=== PATIENT | female | born 1940 | race Hispanic/Latino ===

== ENCOUNTER 2017-03-05 22:42 | Observation (INO) | payer MEDICARE ==
--- NOTE | 2017-03-05 23:05 | ED PDOC ---
Arrival/HPI - General Time Seen by Provider: 03/05/17 22:56 Historian: Patient - History of Present Illness Narrative History of Present Illness (Text): 03/05/17 23:05 Margarette Sosa is a 77 year old female, whose past medical history includes atrial fibrillation on Eliquis, who presents to the Emergency department accompanied by complaining of fever, confusion, and generalized weakness. states patient is currently being evaluated by her urologist for possible infection and had been experiencing dysuria with hematuria for the past few days. notes today patient began experiencing fever with chills , and developed generalized weakness tonight. states patient was having difficulty ambulating to the bathroom tonight secondary to weakness. also notes patient has been disoriented and confused. Patient in ER is confused and oriented to person only. Limited HPI and ROS due to patient's confusion. PMD: Dr. Edmonds Time/Duration: Other (tonight) Symptom Onset: Gradual Symptom Course: Unchanged Activities at Onset: Rest, Light Context: Home Past Medical History - Provider Review Nursing Documentation Reviewed: Yes - Cardiac Hx Pacemaker: No - Neurological Hx Paralysis: No - Hematological/Oncological Hx Blood Transfusions: No Hx Blood Transfusion Reaction: No - Musculoskeletal/Rheumatological Hx Musculoskeletal Disorders: No - Psychiatric Hx Substance Use: No - Anesthesia Hx Anesthesia Reactions: No Hx Malignant Hyperthermia: No Family/Social History - Physician Review Nursing Documentation Reviewed: Yes Family/Social History: Unknown Family HX Hx Alcohol Use: No Hx Substance Use: No Allergies/Home Meds Allergies/Adverse Reactions: Allergies No Known Allergies Allergy (Verified 03/05/17 23:05) Home Medications: Home Meds Medication Instructions Recorded Confirmed Alprazolam [Xanax] 0.25 mg PO BID 05/27/12 03/06/17 Alprazolam [Xanax] 0.25 mg PO BID 03/06/17 03/06/17 Apixaban [Eliquis] 5 mg PO BID 03/06/17 03/06/17 Cholecalciferol [Vitamin D] 0 iu PO QWK 03/06/17 03/06/17 Diltiazem HCl [Diltiazem ER] 180 mg PO DAILY 03/06/17 03/06/17 Mirtazapine [Remeron] 10 mg [facility] 03/06/17 03/06/17 Pantoprazole [Protonix] 40 mg PO DAILY 03/06/17 03/06/17 Simvastatin [Zocor] 1 tab PO 2XW 03/06/17 03/06/17 Review of Systems - Review of Systems Systems not reviewed;Unavailable: Altered Mental Status (Confused) Constitutional: Fevers, Other (+chills, +generalized weakness) Respiratory: absent: SOB, Cough Cardiovascular: absent: Chest Pain Gastrointestinal: absent: Abdominal Pain, Diarrhea, Nausea, Vomiting Genitourinary Female: Dysuria, Hematuria. absent: Urine Output Changes Musculoskeletal: absent: Back Pain Neurological: Other (+confusion). absent: Headache, Dizziness Physical Exam Vital Signs Reviewed: Yes Vital Signs Temp Pulse Resp BP Pulse Ox 03/06/17 02:50 100 H 18 111/64 93 L 03/06/17 01:18 98.3 F 108 H 20 103/66 91 L 03/05/17 23:05 100.1 F H 95 H 17 175/94 H 91 L 03/05/17 23:03 100.1 F H 95 H 17 175/94 H 91 L Temperature: Febrile Blood Pressure: Hypertensive Pulse: Regular Respiratory Rate: Normal Appearance: Positive for: Well-Appearing, Non-Toxic, Comfortable Pain Distress: None Mental Status: Positive for: Confused, other (Oriented to person only ) - Systems Exam Head: Present: Atraumatic, Normocephalic Pupils: Present: PERRL Extroacular Muscles: Present: EOMI Conjunctiva: Present: Normal Mouth: Present: Moist Mucous Membranes Neck: Present: Normal Range of Motion Respiratory/Chest: Present: Clear to Auscultation, Good Air Exchange. No: Respiratory Distress, Accessory Muscle Use Cardiovascular: Present: Regular Rate and Rhythm, Normal S1, S2. No: Murmurs Abdomen: Present: Normal Bowel Sounds. No: Tenderness, Distention, Peritoneal Signs Back: Present: Normal Inspection Upper Extremity: Present: Normal Inspection. No: Cyanosis, Edema Lower Extremity: Present: Normal Inspection. No: Edema Neurological: Present: GCS=15 Skin: Present: Warm, Dry, Normal Color. No: Rashes Psychiatric: Present: Alert, Other (Confused). No: Oriented x 3 (Oriented to person only) Medical Decision Making ED Course and Treatment: 03/05/17 23:05 Impression: 77 year old female brought in for fever, chills, confusion, generalized weakness today, dysuria and hematuria past few days. Differential Diagnosis included but are not limited to: AMS vs. UTI Plan: -- EKG -- Chest X-ray -- Labs, VBG, blood cultures -- Urinalysis, urine cultures -- IV fluids -- Reassess and disposition Progress Notes: Reviewed EKG, a fib at [address] RBBB. Non-specific ST/T wave changes. 03/06/17 01:08 Reviewed radiology, Chest X-ray shows no acute processes. CT Head shows: Brain: There is prominence of sulci, gyri and ventricles. There is no midline shift. There are no intraaxial or extra axial mass lesions or areas of hemorrhage. There is small age- indeterminate lacunar infarcts in the basal ganglia Parker-white differentiation is maintained. Ventricles: See above Bony structures: Cranial vault is intact. Soft tissues: unremarkable Sinuses: There is no acute sinusitis. Ears and mastoids: Middle ears and mastoids unremarkable. Orbits: Orbital contents are unremarkable. IMPRESSION: Age-indeterminate basal ganglia lacunar infarcts; no bleed 03/06/17 02:44 Case discussed with ELIZABETH Gutiérrez, covering for Dr. Edmonds. Pt will be admitted to [facility] for AMS, UTI, and SIRS under Dr. Edmonds's service. Requests Dr. Salazar and Dr. Dc on consult. - Lab Interpretations Lab Results: 03/05/17 22:45 03/05/17 22:45 Lab Results 03/06/17 01:25: Urine Color Yellow, Urine Appearance Sl cloudy, Urine pH 6.0, Ur Specific [place] 1.020, Urine Protein 100 H, Urine Glucose (UA) Negative, Urine Ketones Negative, Urine Blood Large H, Urine Nitrate Negative, Urine Bilirubin Negative, Urine Urobilinogen 0.2, Ur Leukocyte Esterase Moderate H, Urine RBC 5 - 10, Urine WBC 20 - 25, Ur Epithelial Cells 0 - 2, Urine Bacteria Mod 03/05/17 23:20: pO2 136 H, VBG pH 7.47 H, VBG pCO2 31.0 L, VBG HCO3 22.6, VBG Total CO2 23.6, VBG O2 Sat (Calc) 99.6 H, VBG Base Excess -0.2 L, VBG Potassium 3.7, Glucose 156 H, Lactate 1.0, FiO2 21.0, Sodium 130.0 L, Chloride 97.0 L, Venous Blood Potassium 3.7 03/05/17 22:45: Sodium 130 L, Potassium 3.6, Chloride 97, Carbon Dioxide 21, Anion Gap 16, BUN 28 H, Creatinine 2.0 H, Est GFR ( Amer) 29, Est GFR ( Non-Af Amer) 24, Random Glucose 147 H, Calcium 8.4, Phosphorus 2.1 L, Magnesium 1.5 L, Total Bilirubin 2.0 H, AST 26, ALT 24, Alkaline Phosphatase 77, Total Protein 6.7, Albumin 3.6, Globulin 3.1, Albumin/Globulin Ratio 1.2 03/05/17 22:45: PT 16.1 H, INR 1.49 H, APTT 42.5 H 03/05/17 22:45: WBC 9.7, RBC 3.93, Hgb 11.9 L, Hct 34.4 L, MCV 87.5, MCH 30.3, MCHC 34.6, RDW 14.1, Plt Count 134, MPV 10.5, Gran % 86.7 H, Lymph % (Auto) 5.1 L, [place] % (Auto) 8.1 H, Eos % (Auto) 0.0 L, Baso % (Auto) 0.1, Gran # 8.41 H, Lymph # 0.5 L, [place] # 0.8 H, Eos # 0.0, Baso # 0.01 I have reviewed the lab results: Yes - RAD Interpretation Radiology Orders: 03/05/17 23:08 CHEST PORTABLE [RAD] Stat 03/05/17 23:50 HEAD W/O CONTRAST [CT] Stat Battery Tester: ED Physician, Radiologist - EKG Interpretation Interpreted by ED Physician: Yes Type: 12 lead EKG - Medication Orders Current Medication Orders: Sodium Chloride (Sodium Chloride 0.9%) 1,000 mls @ 100 mls/hr IV .Q10H [facility] Last Admin: 03/06/17 00:58 Dose: 100 mls/hr Discontinued Medications Sodium Chloride (Sodium Chloride 0.9%) 1,000 mls @ 999 mls/hr IV .Q1H1M STA Stop: 03/06/17 02:18 Last Admin: 03/06/17 02:00 Dose: 999 mls/hr Ceftriaxone Sodium (Rocephin 1 Gram Ivpb) 1 gm in 100 mls @ 200 mls/hr IV ONCE STA PRN Reason: Protocol Stop: 03/06/17 01:55 Last Admin: 03/06/17 02:32 Dose: 200 mls/hr - Scribe Statement The provider has reviewed the documentation as recorded by the Jada Gottlieb Provider Scribe Attestation: All medical record entries made by the Scribe were at my direction and personally dictated by me. I have reviewed the chart and agree that the record accurately reflects my personal performance of the history, physical exam, medical decision making, and the department course for this patient. I have also personally directed, reviewed, and agree with the discharge instructions and disposition. Disposition/Present on Arrival - Present on Arrival Any Indicators Present on Arrival: No History of DVT/PE: No History of Uncontrolled Diabetes: No Urinary Catheter: No History of Decub. Ulcer: No History Surgical Site Infection Following: None - Disposition Have Diagnosis and Disposition been Completed?: Yes Diagnosis: Altered mental status, Urinary tract infection, SIRS (systemic inflammatory response syndrome) Disposition: HOSPITALIZED Disposition Time: 02:43 Patient Plan: Admission Patient Problems: Current Active Problems Problem Status Onset Altered mental status Acute SIRS (systemic inflammatory response syndrome) Acute Urinary tract infection Acute Condition: STABLE
[2017-03-05 23:57] LABS: VENOUS BLOOD GAS BASE EXCESS -0.2 mmol/L (0.0-2.0); VENOUS BLOOD PH 7.47 (7.32-7.43)
[2017-03-05 23:59] LABS: BASO # 0.01 K/mm3 (0.0-2.0); BASO % 0.1 % (0.0-3.0); GRAN # 8.41 (1.4-6.5); GRAN % 86.7 % (50.0-68.0); HEMATOCRIT 34.4 % (36.0-48.0); LYMPH # 0.5 (1.2-3.4); LYMPH % 5.1 % (22.0-35.0); MEAN CELL VOLUME 87.5 fl (80.0-105.0); MEAN CORPUSCULAR HEMOGLOBIN 30.3 pg (25.0-35.0); MEAN CORPUSCULAR HGB CONC 34.6 g/dl (31.0-37.0); MEAN PLATELET VOLUME 10.5 fl (7.0-11.0); MONO # 0.8 (0.1-0.6); MONO % 8.1 % (1.0-6.0); RED CELL DISTRIBUTION WIDTH 14.1 % (11.5-14.5); WHITE BLOOD COUNT 9.7 10^3/ul (4.5-11.0)
[2017-03-06 00:07] LABS: ALB/GLOB RATIO 1.2 (1.1-1.8); CALCIUM 8.4 mg/dL (8.4-10.5); INR 1.49 (0.93-1.08); MAGNESIUM 1.5 mg/dL (1.7-2.2); PARTIAL THROMBOPLASTIN TIME 42.5 Seconds (23.7-30.8); PHOSPHOROUS 2.1 mg/dL (2.5-4.5); POTASSIUM 3.6 mmol/L (3.6-5.0); TOTAL PROTEIN 6.7 g/dL (5.8-8.3)
--- NOTE | 2017-03-06 00:43 | CT ---
EXAM: CT Head Without Intravenous Contrast EXAM DATE/TIME: 03/05/2017 11:50 PM CLINICAL HISTORY: 77 years old, female; Signs and symptoms; Altered mental status/memory loss; Additional info: AMS TECHNIQUE: Axial computed tomography images of the head/brain without intravenous contrast. All CT scans at this facility use one or more dose reduction techniques, viz.: automated exposure control; ma/kV adjustment per patient size (including targeted exams where dose is matched to indication; i.e. head); or iterative reconstruction technique. COMPARISON: There are no prior studies for comparison. FINDINGS: Brain: There is prominence of sulci, gyri and ventricles. There is no midline shift. There are no intra-axial or extra axial mass lesions or areas of hemorrhage. There is small age-indeterminate lacunar infarcts in the basal ganglia Parker-white differentiation is maintained. Ventricles: See above Bony structures: Cranial vault is intact. Soft tissues: unremarkable Sinuses: There is no acute sinusitis. Ears and mastoids: Middle ears and mastoids unremarkable. Orbits: Orbital contents are unremarkable. IMPRESSION: Age-indeterminate basal ganglia lacunar infarcts; no bleed
[2017-03-06] MEDS: Sodium Chloride 0.9% 1,000 ML IV SCH ×4 (00:58→22:02)
[2017-03-06] MEDS ORDERED: Sodium Chloride 0.9% 1,000 ML IV STA (01:18)
[2017-03-06] MEDS ORDERED: cefTRIAXone 1 gm 1 GM/100 ML BAG IV STA (01:26)
[2017-03-06 02:12] LABS: URINE BILIRUBIN NEGATIVE (NEGATIVE); URINE BLOOD LARGE (NEGATIVE); URINE GLUCOSE (UA) NEGATIVE (NEGATIVE); URINE KETONE NEGATIVE (NEGATIVE); URINE LEUKOCYTE ESTERASE MODERATE Leu/uL (NEGATIVE); URINE PROTEIN 100 mg/dL (<30 mg/dL); URINE UROBILINOGEN 0.2 E.U./dL (<1 E.U./dL)
[2017-03-06 02:23] LABS: URINE APPEARANCE SL CLOUDY (CLEAR); URINE COLOR YELLOW (YELLOW)
[2017-03-06 02:36] LABS: URINE EPITHELIAL CELLS 0 - 2 /hpf (0-5)
[2017-03-06 02:37] LABS: URINE BACTERIA MOD (NEG); URINE WBC 20 - 25 /hpf (0-6)
[2017-03-06 05:26] VITALS: BMI 30.2
--- NOTE | 2017-03-06 07:37 | RAD ---
HISTORY: Sepsis Patient COMPARISON: No prior. FINDINGS: LUNGS: No active pulmonary disease. PLEURA: No significant pleural effusion identified, no pneumothorax apparent. CARDIOVASCULAR: Normal. OSSEOUS STRUCTURES: No significant abnormalities. VISUALIZED UPPER ABDOMEN: Normal. OTHER FINDINGS: None. IMPRESSION: No active disease.
[2017-03-06] MEDS: cefTRIAXone 1 gm 1 GM/100 ML BAG IVPB SCH (10:08)
--- NOTE | 2017-03-06 13:16 | CP.PCM.CON ---
<Donal Rosa - Last Filed: 03/06/17 13:08> History of Present Illness - History of Present Illness History of Present Illness: Consult Note for Dr. Dc Reason for Consult: AMS 77 y/o F with PMH of a-fib on eliquis presents to the ED for generalized weakness and confusion. Patient was initially brought in by for worsening confusion over the last several days. Much of information provided in history from prior medical notes due to patients confused state. Patient was being evaluated by Urology for hematuria and dysuria. The patient began having fever and chills, along with developing generalized weakness. Pt also began having difficulty walking due to weakness. Patient was not at baseline upon admission according to . Review of systems not readily obtained due to patients confused state. When asked questions about past medical history, patient denied everything. She stated she did not have any prior medical issues , but did say she took medicine that she did not know the name of. Review of Systems - Review of Systems Systems not reviewed;Unavailable: Altered Mental Status Past Patient History - Past Social History Smoking Status: Former Smoker - CARDIAC Hx Cardiac Disorders: Yes Hx Cardia Arrhythmia: Yes Hx Pacemaker: No - PULMONARY Hx Respiratory Disorders: No Hx Bronchitis: Yes Hx Pneumonia: Yes - NEUROLOGICAL Hx Neurological Disorder: No - HEENT Hx HEENT Problems: Yes Hx Cataracts: Yes - RENAL Hx Chronic Kidney Disease: No - ENDOCRINE/METABOLIC Hx Endocrine Disorders: No - HEMATOLOGICAL/ONCOLOGICAL Hx Blood Disorders: No - INTEGUMENTARY Hx Dermatological Problems: No - MUSCULOSKELETAL/RHEUMATOLOGICAL Hx Musculoskeletal Disorders: No Hx Falls: No - GASTROINTESTINAL Hx Gastrointestinal Disorders: Yes Hx Diverticulitis: Yes Hx Gastroesophageal Reflux: Yes Other/Comment: colon polyps - GENITOURINARY/GYNECOLOGICAL Hx Genitourinary Disorders: No Other/Comment: Bladder infection - PSYCHIATRIC Hx Psychophysiologic Disorder: Yes Hx Anxiety: Yes Hx Depression: Yes - SURGICAL HISTORY Hx Surgeries: Yes (egd/colonoscopy;cervical polyps;T&A) Other/Comment: stapling of hemmorhoids, denied cervical polyps, colon polyps, denied T&A - ANESTHESIA Hx Anesthesia Reactions: No Hx Malignant Hyperthermia: No Meds Allergies/Adverse Reactions: Allergies Allergy/AdvReac Type Severity Reaction Status Date / Time No Known Allergies Allergy Verified 03/06/17 05:04 - Medications Medications: Current Medications Sodium Chloride (Sodium Chloride 0.9%) 1,000 mls @ 100 mls/hr IV .Q10H [facility] Last Admin: 03/06/17 10:09 Dose: 100 mls/hr Ceftriaxone Sodium (Rocephin 1 Gram Ivpb) 1 gm in 100 mls @ 100 mls/hr IVPB DAILY [facility] PRN Reason: Protocol Last Admin: 03/06/17 10:08 Dose: 100 mls/hr Physical Exam - Constitutional Appears: Non-toxic, No Acute Distress - Head Exam Head Exam: ATRAUMATIC, NORMAL INSPECTION, NORMOCEPHALIC - Eye Exam Eye Exam: EOMI - ENT Exam ENT Exam: Mucous Membranes Moist - Respiratory Exam Respiratory Exam: Clear to Auscultation Bilateral, NORMAL BREATHING PATTERN. absent: Rales, Rhonchi, Wheezes - Cardiovascular Exam Cardiovascular Exam: RRR, +S1, +S2 - GI/Abdominal Exam GI & Abdominal Exam: Normal Bowel Sounds, Soft. absent: Tenderness - Extremities Exam Extremities exam: Positive for: normal inspection. Negative for: calf tenderness, pedal edema - Neurological Exam Neurological exam: Alert, CN II-XII Intact, Oriented x3 Additional comments: No motor or sensory deficits. Patient is oriented x3, but becomes confused easily and must be redirected Speech is tangential No pronator drift - Psychiatric Exam Psychiatric exam: Normal Affect, Normal Mood - Skin Skin Exam: Intact, Normal Color, Warm Results - Vital Signs Recent Vital Signs: Last Vital Signs Temp 98.4 F 03/06/17 08:16 Pulse 108 H 03/06/17 08:16 Resp 22 03/06/17 08:16 BP 110/59 L 03/06/17 08:16 Pulse Ox 98 03/06/17 08:16 - Labs Result Diagrams: 03/05/17 22:45 03/05/17 22:45 Assessment & Plan - Assessment and Plan (Free Text) Plan: 77 y/o F with PMH of A-fib presents with AMS secondary to UTI and dehydration causing metabolic derangements. Patient has had decreased oral intake and appears dehydrated on exam and in lab findings. Head CT showed age indeterminate lacunar infarcts. Pt does have Brain MRI ordered at this time to evaluate for possible emboli from a-fib, although patient is on Eliquis. Pt is neurologically stable at this time. Plan: Brain MRI Increase oral hydration Continue antibiotics for UTI Physical Therapy Moe, PGY-2 <Ney Dc - Last Filed: 03/06/17 14:09> Meds - Medications Medications: Current Medications Sodium Chloride (Sodium Chloride 0.9%) 1,000 mls @ 100 mls/hr IV .Q10H [facility] Last Admin: 03/06/17 10:09 Dose: 100 mls/hr Ceftriaxone Sodium (Rocephin 1 Gram Ivpb) 1 gm in 100 mls @ 100 mls/hr IVPB DAILY [facility] PRN Reason: Protocol Last Admin: 03/06/17 10:08 Dose: 100 mls/hr Results - Vital Signs Recent Vital Signs: Last Vital Signs Temp 98.4 F 03/06/17 08:16 Pulse 108 H 03/06/17 08:16 Resp 22 03/06/17 08:16 BP 110/59 L 03/06/17 08:16 Pulse Ox 98 03/06/17 08:16 - Labs Result Diagrams: 03/05/17 22:45 03/05/17 22:45 Attending/Attestation - Attestation I have personally seen and examined this patient.: Yes I have fully participated in the care of the patient.: Yes I have reviewed all pertinent clinical information: Yes
[2017-03-06 16:24] VITALS: RESP 20
--- NOTE | 2017-03-06 17:27 | MRI ---
PROCEDURE: MRI BRAIN WITHOUT CONTRAST HISTORY: confusion COMPARISON: None. TECHNIQUE: Multiplanar, multisequence MR images of the brain were obtained without intravenous contrast enhancement. FINDINGS: HEMORRHAGE: None DWI: No evidence of an acute or early subacute infarction. BRAIN PARENCHYMA: No mass effect or edema. No atrophy or chronic microvascular ischemic changes. VENTRICLES: Unremarkable. No hydrocephalus. CRANIUM: Unremarkable. ORBITS: Grossly unremarkable. PARANASAL SINUSES/MASTOIDS: Clear VASCULAR SYSTEM: Skull base flow voids intact. OTHER FINDINGS: None. IMPRESSION: Unremarkable non contrast enhanced MRI of the brain.
--- NOTE | 2017-03-06 17:52 | US ---
PROCEDURE: Ultrasound of the Kidneys HISTORY: eval nephropathy,episode of hematuria COMPARISON: None available. TECHNIQUE: Sonogram of the kidneys. FINDINGS: RIGHT KIDNEY: Measures: 10.7 x 4.5 x 5.2 cm. No obstructing calculus, hydronephrosis, or renal cyst identified. LEFT KIDNEY: Measures: 10.8 x 4.4 x 5.4 cm. No obstructing calculus, hydronephrosis, or renal cyst identified. OTHER FINDINGS: None. IMPRESSION: Unremarkable renal sonogram as above.
--- NOTE | 2017-03-06 20:00 | CARD ---
APPROVED REPORT EKG Measurement Heart [id number] <Conclusion> Atrial fibrillation Right bundle branch block Abnormal ECG
--- NOTE | 2017-03-07 02:06 | CON ---
DATE: 03/06/2017 CHIEF COMPLAINT: Altered mental status. HISTORY OF PRESENT ILLNESS: This is a 77-year-old female who is known to me. The patient was seen in my office yesterday. [place] she reported to her the few episode of gross hematuria along with some dysuria and urinary urgency. The patient reports no history of recurrent urinary tract infections. She reportedly saw either her primary doctor or a technical operations vice president and was given antibiotics, however; she reportedly did not start the antibiotics. She presented to my office yesterday for evaluation for a persistent urinary infection and gross hematuria. The patient was noted have an altered mental status and difficulty ambulating. She was referred to come to the emergency room, however; her felt that she was okay and she was scheduled for evaluation of the hematuria. The patient was unable to give a urine sample yesterday. She was catheterized, there was no residual urine in her bladder. She was felt to be dehydrated which I had discussed with the family. Her bladder was irrigated, there was no gross blood and a sample was sent for a culture. At home last night, she became increasingly lethargic and more disoriented; her daughter saw her and brought her to the emergency room. The patient was then admitted for altered mental status, consultation was requested for possible urinary tract infection and gross hematuria. PAST MEDICAL HISTORY: Atrial fibrillation, gross hematuria, altered mental status, hypercholesterolemia, gastroesophageal reflux, hypertension. HOME MEDICATION: Include Xanax, Eliquis, vitamin D, Cardizem, Remeron, Protonix, and Zocor. ALLERGIES: No known drug allergies. FAMILY HISTORY: Noncontributory. SOCIAL HISTORY: No smoking or ETOH use. REVIEW OF SYSTEMS: As per the history of present illness, other systems are negative. PHYSICAL EXAMINATION GENERAL: The patient is seen in her room, there is a family present. She is awake, alert, and answering question, although does appear to have some baseline of dementia. VITAL SIGNS: The patient did have low grade fever last night of 100.1, currently afebrile 98.4, pulse 108, BP 110/59, respirations 20. NECK: .Supple. There is no adenopathy. CHEST: Reveals normal inspiratory effort. CARDIAC: Shows an irregular rhythm. There is trace peripheral edema noted. ABDOMEN: The abdomen is soft. nontender, nondistended. There is no hepatosplenomegaly. There is no costovertebral angle tenderness. Bladder is not palpably distended. EXTREMITIES: No cyanosis. There is trace edema.. PELVIC: Exam was done yesterday, which was unbreakable. LABORATORY DATA: WBC count 9.7, hemoglobin 11.9. Creatinine 2.0 with a BUN of 28. GFR of 24 from yesterday. Urinalysis showed large blood, moderate leukocytes, 5-10 rbc's, 20-25 wbc's, nitrites were negative, positive for protein. Microbiology on specimens are pending. On radiologic exam, no pertinent urologic x-rays were done. IMPRESSION AND PLAN: This is a 77-year-old female with gross hematuria likely hemorrhagic cystitis. Urologically, I would continue the patient on IV fluids if she appears dehydrated and antibiotics until the results of her cultures are known. It is still unclear whether the patient started the antibiotics yesterday or not, so the culture may be negative if she did start the outpatient antibiotics. As per the gross hematuria, the patient is undergoing a neurologic evaluation at this time. I would also recommend a renal ultrasound with CT of the abdomen and pelvis to assess her kidneys and rule out any other causes of gross hematuria, rule out hydronephrosis, given her elevated creatinine, although it does appear from dehydration. When the patient has improved, she will need to follow up in my office as an outpatient. We can perform a cystoscopy under local to rule out any other intravesical pathology, but this can be done on an outpatient basis. The more acute issue at this point is the altered mental status and loss of balance. Thank you for allowing us to participate in the care of this patient. We will follow her with you. Uvaldo Salazar MD
[2017-03-07] MEDS ORDERED: Pantoprazole 40 mg EC Tab PO SCH ×2 (06:00→10:00)
[2017-03-07 06:38] LABS: HEMATOCRIT 32.2 % (36.0-48.0); MEAN CELL VOLUME 88.7 fl (80.0-105.0); MEAN CORPUSCULAR HEMOGLOBIN 29.8 pg (25.0-35.0); MEAN CORPUSCULAR HGB CONC 33.5 g/dl (31.0-37.0); MEAN PLATELET VOLUME 10.9 fl (7.0-11.0); RED CELL DISTRIBUTION WIDTH 14.2 % (11.5-14.5); WHITE BLOOD COUNT 4.6 10^3/ul (4.5-11.0)
[2017-03-07] MEDS: Sodium Chloride 0.9% 1,000 ML IV SCH (06:45)
[2017-03-07 06:57] LABS: BILIRUBIN,TOTAL 0.6 mg/dL (0.2-1.3); CALCIUM 7.7 mg/dL (8.4-10.5); POTASSIUM 3.4 mmol/L (3.6-5.0); TOTAL PROTEIN 5.7 g/dL (5.8-8.3)
[2017-03-07 07:52] VITALS: BP 112/72; PULSE 90; TEMP 99.1; O2SAT 93
[2017-03-07] MEDS: cefTRIAXone 1 gm 1 GM/100 ML BAG IVPB SCH (09:54)
[2017-03-07] MEDS ORDERED: diltiaZEM 180 mg/24 Hours CD Cap PO SCH (10:00)
[2017-03-07] MEDS ORDERED: Non Formulary Medication (Simvastatin [Zocor] 1 TAB) PO SCH (10:00)
[2017-03-07] MEDS ORDERED: DILTIAZEM HCL 180 MG PO SCH (10:00)
[2017-03-07] MEDS ORDERED: Potassium Chloride 20 mEq ER Tab PO ONE (11:26)
--- NOTE | 2017-03-07 11:37 | HP ---
HISTORY OF PRESENT ILLNESS: The patient is a 77-year-old white female with a history of colon cancer in the past, history of coronary artery disease, chronic atrial fibrillation, status post open heart surgery and hypertension. The patient admitted to the hospital with change in mental status, confusion, disorientation and still somewhat confused and disoriented this morning, but more awake and alert. The patient was found to have urosepsis, dementia, change in mental status, urinary tract infection elevated and temperature to 101.4. The patient was started on antibiotics in the ER, was admitted to the hospital. Negative CT of the head. Chronic atrial fibrillation, her Eliquis was held until the CT was negative. She also was found to have some hematuria and has been followed by Dr. Prado and the patient did have an ultrasound of the kidneys, which was negative. She did have an elevated creatinine of 2.0 and congested with her dehydration. She was less febrile today, more awake and alert. We will restart her Eliquis and continue treatment of her urosepsis. PHYSICAL EXAMINATION: GENERAL: The patient is a well-developed, well-nourished white female in no apparent distress. She is somewhat unable to recall the events from the following day, but she is oriented to person and place, but not the time. HEART: Irregularly irregular, soft ejection murmur at the left sternal border. CHEST: Clear to auscultation and percussion. ABDOMEN: Obese, but benign. EXTREMITIES: No cyanosis, clubbing, edema. Nayan Edmonds MD
--- NOTE | 2017-03-11 07:21 | DS ---
HISTORY OF PRESENT ILLNESS: The patient is a 77-year-old white female admitted to the hospital with change in mental status, confusion and disorientation, is found to have urosepsis and mild dementia. The patient did have a CT, which showed age-related basal ganglia lacunar infarcts with no bleed. The patient also had a brain MRI, which was unremarkable noncontrast enhanced MRI of the brain. The patient was seen in consultation by Dr. Dc and also by Dr. Prado because of the recurrent hematuria. Renal ultrasound was negative. There was no frequent bleeding. The patient was treated with IV antibiotics, mental status improved, and the patient is able to be discharged home in improved condition. The patient's H and H were stable. She did have evidence of severe urinary tract infection and [id number] blood. The patient became afebrile and was discharged home due to continuing course of p.o. antibiotics at home. FINAL DISCHARGE DIAGNOSES: Hematuria, urosepsis, urinary tract infection, and change in mental status. Nayan Edmonds MD
== END 2017-03-07 14:09 | disposition home or self-care (01) ==
LOC: ED 22:42 → INTOOBSV 03-06 02:29 → ERH 03-06 02:29 → 3RNO 03-06 04:17
PROVIDERS: ADMIT Internal Medicine; ATTEND Internal Medicine
DX: N39.0 Urinary tract infection, site not specified (principal); E86.0 Dehydration; K21.9 Gastro-esophageal reflux disease without esophagitis; I10 Essential (primary) hypertension; R26.2 Difficulty in walking, not elsewhere classified; I48.2 Chronic atrial fibrillation; I25.10 Atherosclerotic heart disease of native coronary artery without angina pectoris; F03.90 Unspecified dementia, unspecified severity, without behavioral disturbance, psychotic disturbance, mood disturbance, and anxiety; N02.9 Recurrent and persistent hematuria with unspecified morphologic changes; E78.00 Pure hypercholesterolemia, unspecified; Z87.891 Personal history of nicotine dependence; Z85.038 Personal history of other malignant neoplasm of large intestine
CPT/HCPCS: 36415; 70450; 70551; 71010; 76770; 80053; 81001; 82803; 82948; 83735; 84100; 85025; 85027; 85610; 85730; 87040; 87086; 93005; 96365; 96366; 96375; 97116; 97161; 99285; G0378; G8978; G8979; J0696; J7040

== ENCOUNTER 2018-01-14 12:20 | Inpatient (IN) | payer MEDICARE ==
[2018-01-14] MEDS ORDERED: cefTRIAXone 1 gm 1 GM/100 ML BAG IVPB STA (12:49)
[2018-01-14] MEDS ORDERED: Sodium Chloride 0.9% 500 ML IV STA (12:51)
--- NOTE | 2018-01-14 13:04 | ED PDOC ---
Arrival/HPI - General Historian: Patient, Spouse - History of Present Illness Time/Duration: < week Symptom Onset: Gradual Symptom Course: Worsening Activities at Onset: Rest <Davi Sellesr - Last Filed: 01/14/18 16:27> <Vicente Ragsdale DO - Last Filed: 01/14/18 17:12> - General Chief Complaint: Shortness Of Breath Time Seen by Provider: 01/14/18 12:43 - History of Present Illness Narrative History of Present Illness (Text): 01/14/18 16:27 This is a 77 year old female with PMH of afib presenting to the ER for UTI symptoms. She had a positive UTI test last week as outpatient and started nitrofurantoin 100mg BID yesterday. Her burning on urination has worsened today , and per daughter, patient's mental status is more confused than baseline. Patient's daughter also states fever at home yesterday was 101.8. Patient's urologist is Dr. Salazar. Patient admits to burning on urination, dysuria, and confusion. Patient denies chest pain, shortness of breath, dizziness, abdominal pain, headaches, and blood in urine. Will initiate sepsis protocol. (Davi Sellers) Past Medical History - Provider Review Nursing Documentation Reviewed: Yes - Infectious Disease Hx of Infectious Diseases: None - Reproductive Menopause: Yes - Cardiac Hx Cardiac Disorders: Yes Hx Atrial Fibrillation: Yes - Pulmonary Hx Respiratory Disorders: No Hx Bronchitis: Yes Hx Pneumonia: Yes - Neurological Hx Neurological Disorder: No - HEENT Hx HEENT Disorder: Yes Hx Cataracts: Yes - Renal Hx Renal Disorder: No - Endocrine/Metabolic Hx Endocrine Disorders: No - Hematological/Oncological Hx Blood Disorders: No - Integumentary Hx Dermatological Disorder: No - Musculoskeletal/Rheumatological Hx Musculoskeletal Disorders: No Hx Falls: No - Gastrointestinal Hx Gastrointestinal Disorders: Yes Hx Diverticulitis: Yes Hx Gastroesophageal Reflux: Yes Other/Comment: colon polyps - Genitourinary/Gynecological Hx Genitourinary Disorders: No Other/Comment: Bladder infection - Psychiatric Hx Psychophysiologic Disorder: Yes Hx Anxiety: Yes Hx Depression: Yes Hx Substance Use: No - Surgical History Other/Comment: stapling of hemmorhoids, denied cervical polyps, colon polyps, denied T&A - Anesthesia Hx Anesthesia Reactions: No Hx Malignant Hyperthermia: No <Davi Sellers - Last Filed: 01/14/18 16:27> Family/Social History - Physician Review Nursing Documentation Reviewed: Yes Family/Social History: Unknown Family HX Smoking Status: Former Smoker Hx Alcohol Use: No Hx Substance Use: No <Davi Slelers - Last Filed: 01/14/18 16:27> Allergies/Home Meds <Davi Sellers - Last Filed: 01/14/18 16:27> <Jn Vicente DRAKE - Last Filed: 01/14/18 17:12> Allergies/Adverse Reactions: Allergies No Known Allergies Allergy (Verified 01/14/18 12:40) Home Medications: Home Meds Medication Instructions Recorded Confirmed Alprazolam [Xanax] 0.25 mg PO BID 05/27/12 01/14/18 Apixaban [Eliquis] 5 mg PO BID 03/06/17 01/14/18 Diltiazem HCl [Diltiazem ER] 180 mg PO DAILY 03/06/17 01/14/18 Mirtazapine [Remeron] 15 mg PO 03/06/17 03/06/17 Pantoprazole [Protonix EC Tab] 40 mg PO DAILY 03/06/17 01/14/18 Simvastatin [Zocor] 1 tab PO 03/06/17 03/06/17 Review of Systems - Physician Review All systems were reviewed & negative as marked: Yes - Review of Systems Constitutional: Fevers Eyes: Normal ENT: Normal Respiratory: Normal. absent: SOB, Cough Cardiovascular: Normal. absent: Chest Pain, Palpitations Gastrointestinal: Normal Genitourinary Female: Dysuria, Other (burning on urination) Musculoskeletal: Normal Skin: Normal Neurological: Normal. absent: Headache, Focal Weakness <Davi Sellers - Last Filed: 01/14/18 16:27> Physical Exam Vital Signs Reviewed: Yes Temperature: Afebrile Blood Pressure: Hypotensive Pulse: Tachycardic Respiratory Rate: Normal Appearance: Positive for: Comfortable Pain Distress: None Mental Status: Positive for: Confused - Systems Exam Head: Present: Atraumatic Conjunctiva: Present: Normal Mouth: Present: Moist Mucous Membranes Neck: Present: Normal Range of Motion Respiratory/Chest: Present: Clear to Auscultation, Good Air Exchange. No: Respiratory Distress, Accessory Muscle Use Cardiovascular: Present: Normal S1, S2, Irregular Rhythm. No: Murmurs Abdomen: No: Tenderness, Distention, Peritoneal Signs Back: Present: Normal Inspection Upper Extremity: Present: Normal Inspection. No: Cyanosis, Edema Lower Extremity: Present: Normal Inspection. No: Edema Neurological: Present: Speech Normal Skin: Present: Warm, Dry, Normal Color. No: Rashes <Cele Sellersbryce - Last Filed: 01/14/18 16:27> Vital Signs Temp Pulse Resp BP Pulse Ox 01/14/18 16:41 98.2 F 93 H 18 120/75 96 01/14/18 13:48 102 H 17 133/47 L 95 01/14/18 12:58 118 H 18 94/35 L 96 01/14/18 12:44 18 01/14/18 12:35 99.6 F 120 H 18 66/35 L 95 Medical Decision Making <Cele Sellersbryce - Last Filed: 01/14/18 16:27> - Lab Interpretations I have reviewed the lab results: Yes - RAD Interpretation Composition Floor Layer: Radiologist - EKG Interpretation Interpreted by ED Physician: Yes Type: 12 lead EKG <Edytavirgie Vicente DRAKE - Last Filed: 01/14/18 17:12> ED Course and Treatment: 01/14/18 14:10 Impression: This is a 77 year old female presenting to ED for UTI symptoms and possible sepsis. Plan: -CMP, CBC, PT/PTT, Mg, Phosphorous -Venous blood gas -U/A, urine culter -Blood culture -IV ceftriaxone -Chest xray, CT head, CT abd/pelvis -Ekg Progress: (Davi Sellers) 01/14/18 Patient Seen With Resident: In agreement with resident note which contains more details about the patient. Patient was seen and evaluated with resident. Came up with plan and treatment together. 01/14/18 15:44 Discussed case with , who is aware and agrees with emergency department treatment of patient. 01/14/18 15:47 Discussed case with , who is the ACTUARIAL CONSULTANT for , and who is aware and agrees to admit patient under his service. 01/14/[address] without contrast: Creator : Zana Liu MD COMPARISON: 03/06/2017 CT head. 03/06/2017 MRI brain. IMPRESSION: No acute intracranial abnormalities. No significant findings to account for the clinical presentation. No significant interval change compared to the prior examination(s). Abdomen Pelvis CT without IV contrast: Creator : Zana Liu MD COMPARISON: 04/03/2012 IMPRESSION: No significant or acute findings to account for/ related to the clinical presentation. Additional benign and/or incidental findings described above.Limitations of the current examination: No significant interval change compared to the prior examination(s). Limitations of the current examination: Absence of intravenous contrast in the assessment of suspected pyelonephritis. Chest X-ray: Creator : Zana Liu MD COMPARISON: 03/05/2017 IMPRESSION: No active disease. No significant interval change compared to the prior examination(s). 01/14/18 EKG shows atrial fibrillation at 109 BPM with RBBB. Interpreted by me. (Vicente Ragsdale DO) - Lab Interpretations Lab Results: 01/14/18 12:56 01/14/18 14:07 Lab Results 01/14/18 14:07: Sodium 137, Chloride 104, Potassium 3.7, Carbon Dioxide 21, Anion Gap 16, BUN 12, Creatinine 1.2, Est GFR ( Amer) 52, Est GFR (Non- Af Amer) 43, Random Glucose 113 H, Calcium 8.5, Phosphorus 1.9 L, Magnesium 1.7 , Total Bilirubin 0.8, AST 25, ALT 20, Alkaline Phosphatase 81, Lactate Dehydrogenase 394, Total Creatine Kinase 37, Troponin I < 0.01, Total Protein 6.5, Albumin 3.9, Globulin 2.7, Albumin/Globulin Ratio 1.4 01/14/18 14:07: Urine Color Yellow, Urine Appearance Turbid, Urine pH 6.0, Ur Specific [place] 1.020, Urine Protein 30 H, Urine Glucose (UA) Negative, Urine Ketones Negative, Urine Blood Large H, Urine Nitrate Negative, Urine Bilirubin Negative, Urine Urobilinogen 0.2, Ur Leukocyte Esterase Small H, Urine RBC 10 - 15, Urine WBC 5 - 10, Ur Epithelial Cells Many, Urine Bacteria Few 01/14/18 12:56: pO2 57 H, VBG pH 7.45 H, VBG pCO2 35.0 L, VBG HCO3 24.3, VBG Total CO2 25.4, VBG O2 Sat (Calc) 93.7 H, VBG Base Excess 0.7, VBG Potassium 5.3 H, Sodium 135.0, Chloride 105.0, Glucose 138 H, Lactate 1.3, FiO2 21.0, Venous Blood Potassium 5.3 H 01/14/18 12:56: PT 24.7 H, INR 2.13 H, APTT 35.0 01/14/18 12:56: WBC 4.4 L, RBC 4.26, Hgb 13.0 D, Hct 37.7, MCV 88.5, MCH 30.5, MCHC 34.5, RDW 13.7, Plt Count 170, MPV 10.3, Gran % 92.6 H, Lymph % (Auto) 1.6 L, [place] % (Auto) 5.6, Eos % (Auto) 0.2 L, Baso % (Auto) 0.0, Gran # 4.10, Lymph # (Auto) 0.1 L, [place] # (Auto) 0.3, Eos # (Auto) 0.0, Baso # (Auto) 0.00, Neutrophils % (Manual) 98 H, Lymphocytes % (Manual) 1 L, Monocytes % (Manual) 1 , Platelet Evaluation Normal - RAD Interpretation Radiology Orders: 01/14/18 12:49 CHEST PORTABLE [RAD] Stat 01/14/18 13:01 ABD & PELVIS W/O PO OR IV CONT [CT] Stat HEAD W/O CONTRAST [CT] Stat - Medication Orders Current Medication Orders: Sodium Chloride (Sodium Chloride 0.9%) 1,000 mls @ 125 mls/hr IV .Q8H [facility] Last Admin: 01/14/18 13:05 Dose: 125 mls/hr eMAR Start Stop Document 01/14/18 13:05 SF (Rec: 01/14/18 13:05 [id number]) Intravenous Solution Start Date 01/14/18 Start Time 13:05 End Date 01/14/18 Discontinued Medications Ceftriaxone Sodium (Rocephin 1 Gram Ivpb) 1 gm in 100 mls @ 200 mls/hr IVPB STAT STA PRN Reason: Protocol Stop: 01/14/18 13:18 Last Admin: 01/14/18 13:05 Dose: 200 mls/hr eMAR Start Stop Document 01/14/18 13:05 SF (Rec: 01/14/18 13:05 SF [id number]) Intravenous Solution Start Date 01/14/18 Start Time 13:05 End Date 01/14/18 End time 14:05 Total Infusion Time 60 Sodium Chloride (Sodium Chloride 0.9%) 500 mls @ 999 mls/hr IV .Q31M STA Stop: 01/14/18 13:21 Last Admin: 01/14/18 13:06 Dose: 999 mls/hr eMAR Start Stop Document 01/14/18 13:06 SF (Rec: 01/14/18 13:06 SF [id number]) Intravenous Solution Start Date 01/14/18 Start Time 13:06 End Date 01/14/18 End time 13:36 Total Infusion Time 30 - PA / ACTUARIAL CONSULTANT / Resident Statement [facility]ET has reviewed & agrees with the documentation as recorded. [facility]NEET has examined the patient and agrees with the treatment plan. <Davi Sellers - Last Filed: 01/14/18 16:27> Disposition/Present on Arrival - Present on Arrival Any Indicators Present on Arrival: No History of DVT/PE: No History of Uncontrolled Diabetes: No Urinary Catheter: No History of Decub. Ulcer: No History Surgical Site Infection Following: None <Davi Sellers - Last Filed: 01/14/18 16:27> - Disposition Have Diagnosis and Disposition been Completed?: Yes Disposition Time: 15:00 <Vicente Ragsdale DO - Last Filed: 01/14/18 17:12> - Disposition Diagnosis: Hypotension, Urinary tract infection Condition: FAIR
[2018-01-14] MEDS: Sodium Chloride 0.9% 1,000 ML IV SCH ×2 (13:05→21:38)
[2018-01-14 13:33] LABS: EOS % 0.2 % (1.5-5.0); GRAN % 92.6 % (50.0-68.0); LYMPH # 0.1 (1.2-3.4); LYMPH % 1.6 % (22.0-35.0); MEAN CELL VOLUME 88.5 fl (80.0-105.0); MEAN CORPUSCULAR HEMOGLOBIN 30.5 pg (25.0-35.0); MEAN CORPUSCULAR HGB CONC 34.5 g/dl (31.0-37.0); MEAN PLATELET VOLUME 10.3 fl (7.0-11.0); MONO # 0.3 (0.1-0.6); MONO % 5.6 % (1.0-6.0); PLATELET COUNT 170 10^3/uL (120.0-450.0); RBC 4.26 10^6/uL (3.5-6.1); RED CELL DISTRIBUTION WIDTH 13.7 % (11.5-14.5); WHITE BLOOD COUNT 4.4 10^3/ul (4.5-11.0)
[2018-01-14 13:44] LABS: INR 2.13 (0.93-1.08); PROTHROMBIN TIME 24.7 SECONDS (9.4-12.5); VENOUS BLOOD GAS BASE EXCESS 0.7 mmol/L (0.0-2.0); VENOUS BLOOD GAS PO2 57 mm/Hg (30-55); VENOUS BLOOD PH 7.45 (7.32-7.43)
[2018-01-14 13:56] LABS: LYMPHOCYTE 1 % (22.0-35.0); MONOCYTE 1 % (1.0-6.0); NEUTROPHIL 98 % (50.0-70.0); PLATELET ESTIMATE NORMAL (NORMAL)
--- NOTE | 2018-01-14 14:09 | CT ---
PROCEDURE: CT HEAD WITHOUT CONTRAST. HISTORY: r/o ICH COMPARISON: 03/06/2017 CT head. 03/06/2017 MRI brain. TECHNIQUE: Axial computed tomography images were obtained through the head/brain without intravenous contrast. Coronal and sagittal reconstructed images. Radiation dose: Total exam DLP = 845.30 mGy-cm. This CT exam was performed using one or more of the following dose reduction techniques: Automated exposure control, adjustment of the mA and/or kV according to patient size, and/or use of iterative reconstruction technique. FINDINGS: HEMORRHAGE: No intracranial hemorrhage. BRAIN: No mass effect or edema. Cortical atrophy, periventricular small vessel disease. VENTRICLES: Unremarkable. No hydrocephalus. CALVARIUM: Unremarkable. PARANASAL SINUSES: Unremarkable as visualized. No significant inflammatory changes. MASTOID AIR CELLS: Unremarkable as visualized. No inflammatory changes. OTHER FINDINGS: None. IMPRESSION: No acute intracranial abnormalities. No significant findings to account for the clinical presentation. No significant interval change compared to the prior examination(s).
--- NOTE | 2018-01-14 14:15 | CT ---
PROCEDURE: CT Abdomen and Pelvis without intravenous contrast HISTORY: ? pyelonephritis COMPARISON: 04/03/2012 TECHNIQUE: Unenhanced study. Neither oral nor intravenous contrast administered. Sensitivity and specificity for acute inflammatory processes including clinically suspected pyelonephritis limited by the absence of intravenous contrast. Radiation dose: Total exam DLP = 621.82 mGy-cm. This CT exam was performed using one or more of the following dose reduction techniques: Automated exposure control, adjustment of the mA and/or kV according to patient size, and/or use of iterative reconstruction technique. FINDINGS: LOWER THORAX: Unremarkable. LIVER: Unremarkable. No gross lesion or ductal dilatation. GALLBLADDER AND BILE DUCTS: Unremarkable. PANCREAS: Unremarkable. No gross lesion or ductal dilatation. SPLEEN: Unremarkable. ADRENALS: Unremarkable. No mass. KIDNEYS AND URETERS: Unremarkable. No hydronephrosis. No solid mass. VASCULATURE: Unremarkable. No aortic aneurysm. BOWEL: Unremarkable. No obstruction. No gross mural thickening. APPENDIX: Unremarkable. Normal appendix. PERITONEUM: Unremarkable. No free fluid. No free air. LYMPH NODES: Unremarkable. No enlarged lymph nodes. BLADDER: Unremarkable. REPRODUCTIVE: Unremarkable. BONES: No acute fracture. OTHER FINDINGS: Cystic mass in the left hemipelvis perhaps adnexal in origin unchanged compared to the prior study IMPRESSION: No significant or acute findings to account for/ related to the clinical presentation. Additional benign and/or incidental findings described above.Limitations of the current examination: No significant interval change compared to the prior examination(s). Limitations of the current examination: Absence of intravenous contrast in the assessment of suspected pyelonephritis.
--- NOTE | 2018-01-14 14:19 | RAD ---
HISTORY: Sepsis Patient COMPARISON: 03/05/2017 FINDINGS: LUNGS: No active pulmonary disease. PLEURA: No significant pleural effusion identified, no pneumothorax apparent. CARDIOVASCULAR: No radiographic findings to suggest acute or significant cardiovascular disease. OSSEOUS STRUCTURES: No significant abnormalities. VISUALIZED UPPER ABDOMEN: Normal. OTHER FINDINGS: None. IMPRESSION: No active disease. No significant interval change compared to the prior examination(s).
[2018-01-14 14:47] LABS: URINE BILIRUBIN NEGATIVE (NEGATIVE); URINE BLOOD LARGE (NEGATIVE); URINE GLUCOSE (UA) NEGATIVE (NEGATIVE); URINE LEUKOCYTE ESTERASE SMALL Leu/uL (NEGATIVE); URINE PROTEIN 30 mg/dL (<30 mg/dL); URINE UROBILINOGEN 0.2 E.U./dL (<1 E.U./dL)
[2018-01-14 14:48] LABS: URINE APPEARANCE TURBID (CLEAR); URINE COLOR YELLOW (YELLOW)
[2018-01-14 14:54] LABS: URINE BACTERIA FEW (NEG); URINE EPITHELIAL CELLS MANY /hpf (0-5)
[2018-01-14 15:13] LABS: ALB/GLOB RATIO 1.4 (1.1-1.8); ALBUMIN 3.9 g/dL (3.0-4.8); ALT/SGPT 20 U/L (7-56); AST/SGOT 25 U/L (14-36); BLOOD UREA NITROGEN 12 mg/dL (7-21); CALCIUM 8.5 mg/dL (8.4-10.5); GFR AFRICAN-AMERICAN 52; GFR NON-AFRICAN AMERICAN 43
[2018-01-14 15:23] LABS: TROPONIN I < 0.01 ng/mL
[2018-01-14] MEDS ORDERED: SIMVASTATIN PO SCH (22:00)
[2018-01-14 22:08] VITALS: BMI 27.1
[2018-01-14] MEDS ORDERED: Pneumococcal 23-Valent Vaccine IM ONE (22:09)
[2018-01-15] MEDS: Sodium Chloride 0.9% 1,000 ML IV SCH (05:48)
--- NOTE | 2018-01-15 06:46 | CP.PCM.HP ---
<Rebeca Durant - Last Filed: 01/15/18 11:56> History of Present Illness - History of Present Illness History of Present Illness: H&P for Dr. Curtis (covering for Dr. Edmonds), Nakia Durant PGY3 This is a 77yo female with past medical history of HTN, CAD, a.fib (on Eliquis) , GERD, UTI, AMS who came to ED for dysuria and fever. Patient was diagnosed with UTI at Dr. Salazar (Urologist) office. She was given Macrobid and took it for one day. After that, patient became confused and had a fever of Tmax 101.8. Family brought her into the hospital. Patient was given one dose of Rocephin in ED. Patient is confused on examination. She is A&O x 1 (to person). Some history obtained through previous records. She reports her dysuria has improved. She denies fever/chills, chest pain, shortness of breath, nausea/ vomiting/diarrhea, numbness/tingling, or abdominal pain. Past medical history: a.fib (on Eliquis), HTN, GERD, dyslipidemia, UTI (w/ possible hemorrhagic cysitis), AMS in past Past surgical history: CABG Home meds: Reviewed Allergies: NKDA Social history: Denies EtOH, drug or tobacco use Family history: Non-contributory Present on Admission - Present on Admission Any Indicators Present on Admission: No Review of Systems - Review of Systems All systems: reviewed and no additional remarkable complaints except Review of Systems: 12 point ROS reviewed as per HPI and is otherwise negative. Past Patient History - Infectious Disease Hx of Infectious Diseases: None - Past Social History Smoking Status: Former Smoker - CARDIAC Hx Cardiac Disorders: Yes Hx Cardia Arrhythmia: Yes (afib) Hx Hypercholesterolemia: Yes - PULMONARY Hx Respiratory Disorders: No Hx Bronchitis: Yes Hx Pneumonia: Yes - NEUROLOGICAL Hx Neurological Disorder: No - HEENT Hx HEENT Problems: Yes (eyeglasses) Hx Cataracts: Yes - RENAL Hx Chronic Kidney Disease: No - ENDOCRINE/METABOLIC Hx Endocrine Disorders: No - HEMATOLOGICAL/ONCOLOGICAL Hx Blood Disorders: No - INTEGUMENTARY Hx Dermatological Problems: No - MUSCULOSKELETAL/RHEUMATOLOGICAL Hx Falls: No - GASTROINTESTINAL Hx Gastrointestinal Disorders: Yes (ibs alternates diarrhea/constipation) Hx Diverticulitis: Yes Hx Gastroesophageal Reflux: Yes Other/Comment: colon polyps - GENITOURINARY/GYNECOLOGICAL Hx Genitourinary Disorders: No Hx Urinary Tract Infection: Yes (02/2017) Other/Comment: Bladder infection - PSYCHIATRIC Hx Substance Use: No - SURGICAL HISTORY Hx Surgeries: Yes (colon polyps) Other/Comment: stapling of hemmorhoids, denied cervical polyps,denied T&A - ANESTHESIA Hx Anesthesia Reactions: No Hx Malignant Hyperthermia: No Meds Allergies/Adverse Reactions: Allergies Allergy/AdvReac Type Severity Reaction Status Date / Time No Known Allergies Allergy Verified 01/14/18 12:40 Physical Exam - Constitutional Appears: No Acute Distress, Confused - Head Exam Head Exam: ATRAUMATIC, NORMAL INSPECTION, NORMOCEPHALIC - Eye Exam Eye Exam: Normal appearance, PERRL Pupil Exam: NORMAL ACCOMODATION, PERRL - ENT Exam ENT Exam: Mucous Membranes Moist - Neck Exam Neck exam: Positive for: Normal Inspection - Respiratory Exam Respiratory Exam: Clear to Auscultation Bilateral, NORMAL BREATHING PATTERN. absent: Rales, Rhonchi, Wheezes - Cardiovascular Exam Cardiovascular Exam: REGULAR RHYTHM, +S1, +S2. absent: Gallop, Rubs, Systolic Murmur - GI/Abdominal Exam GI & Abdominal Exam: Normal Bowel Sounds, Soft. absent: Rebound, Rigid, Tenderness - Extremities Exam Extremities exam: Positive for: normal inspection. Negative for: calf tenderness, pedal edema - Neurological Exam Neurological exam: Alert, CN II-XII Intact - Psychiatric Exam Psychiatric exam: Normal Affect, Normal Mood - Skin Skin Exam: Dry, Warm Results - Vital Signs Recent Vital Signs: Last Vital Signs Temp 98.2 F 01/14/18 21:58 Pulse 83 01/15/18 06:00 Resp 16 01/14/18 21:58 BP 126/84 01/14/18 21:58 Pulse Ox 96 01/14/18 19:22 - Labs Result Diagrams: 01/14/18 12:56 01/14/18 14:07 Assessment & Plan - Assessment and Plan (Free Text) Assessment: This is a 77yo female with past medical history of HTN, CAD, a.fib (on Eliquis) , GERD, UTI, AMS who is admitted for 1. AMS - most likely secondary to UTI - Head CT negative 2. UTI - U/A positive, urine culture negative. - Failed outpatient antibiotics - CT A/P did not show acute findings 3. A.fib - EKG showed a.fib @108bpm 4. Hypophosphatemia 5. HTN Plan: Will place patient on Cefepime. Will replace Phos and monitor. We will continue patient's home medication for a.fib (Cardizem and Eliquis). Continue Lipitor and Xanax prn anxiety. Patient is on protonix and SCDs for prophylaxis. Patient lives with and will be sent home upon d/c. Case seen, discussed and reviewed with Dr. Curtis. Nakia Durant PGY3 - Date & Time Date: 01/15/18 Time: 12:11 <Dominik Curtis S - Last Filed: 01/15/18 21:15> Results - Vital Signs Recent Vital Signs: Last Vital Signs Temp 98.8 F 01/15/18 19:02 Pulse 72 01/15/18 18:00 Resp 18 01/15/18 18:00 BP 105/59 L 01/15/18 18:00 Pulse Ox 97 01/15/18 18:00 - Labs Result Diagrams: 01/14/18 12:56 01/14/18 14:07 Assessment & Plan - Assessment and Plan (Free Text) Plan: Pt seen and examined. I have reviewed the note of the medical information specialist and agree with it. I have discussed the assessment and plan with the resident. I have reviewed the patient's labs and medications. Pt with URI and failed outpt treatment. On Cefepine for Abx. UCx is pending. Phosp repalced PO. Spoke to at bedside. Eatign ok. No pain.
[2018-01-15] MEDS ORDERED: Potassium Phosphate 15 MMOLE in Sodium Chloride 0.9% 250 ML IVPB ONE (06:52)
--- NOTE | 2018-01-15 07:48 | CARD ---
APPROVED REPORT EKG Measurement Heart [id number] <Conclusion> Atrial fibrillation with rapid ventricular response Low voltage QRS Right bundle branch block Abnormal ECG
[2018-01-15] MEDS ORDERED: Cefepime 1gm in NS 100ml 1 GM/100 ML BAG IVPB SCH ×2 (10:00→12:36)
[2018-01-15] MEDS ORDERED: cefTRIAXone 1 gm 1 GM/100 ML BAG IVPB SCH (10:00)
[2018-01-15] MEDS ORDERED: DILTIAZEM HCL 180 MG PO SCH (10:00)
[2018-01-15] MEDS: diltiaZEM 180 mg/24 Hours CD Cap PO SCH (10:53)
[2018-01-15] MEDS: Potassium & Sodium Phosphate PO SCH ×2 (10:54→17:16)
[2018-01-15] MEDS: Pantoprazole 40 mg EC Tab PO SCH (10:54)
[2018-01-16 06:48] LABS: CALCIUM 8.5 mg/dL (8.4-10.5); HEMOGLOBIN 12.5 g/dL (12.0-16.0); MEAN CELL VOLUME 88.7 fl (80.0-105.0); MEAN CORPUSCULAR HEMOGLOBIN 29.6 pg (25.0-35.0); MEAN CORPUSCULAR HGB CONC 33.3 g/dl (31.0-37.0); MEAN PLATELET VOLUME 10.7 fl (7.0-11.0); RBC 4.23 10^6/uL (3.5-6.1); RED CELL DISTRIBUTION WIDTH 14.1 % (11.5-14.5)
[2018-01-16 07:01] LABS: WHITE BLOOD COUNT 2.6 10^3/ul (4.5-11.0)
[2018-01-16 07:40] VITALS: BP 136/70; PULSE 118; RESP 20; TEMP 97.8; O2SAT 92
[2018-01-16] MEDS ORDERED: Potassium Chloride 20 mEq ER Tab PO STA (08:33)
[2018-01-16] MEDS: diltiaZEM 180 mg/24 Hours CD Cap PO SCH (09:00)
[2018-01-16] MEDS: Potassium & Sodium Phosphate PO SCH (09:01)
[2018-01-16] MEDS: Pantoprazole 40 mg EC Tab PO SCH (09:01)
[2018-01-16] MEDS ORDERED: POLYETHYLENE GLYCOL 3350 17 GM/Dose PACKET PO SCH (10:00)
--- NOTE | 2018-01-16 10:58 | CP.PCM.DIS ---
<CarleenRebeca - Last Filed: 01/16/18 10:54> Provider - Provider Date of Admission: 01/15/18 15:13 Attending physician: Nayan Edmonds MD Primary care physician: Nayan Edmonds MD Time Spent in preparation of Discharge (in minutes): 35 Hospital Course - Lab Results Lab Results: Most Recent Lab Values WBC 2.6 10^3/ul (4.5-11.0) L* D 01/16/18 06:00 RBC 4.23 10^6/uL (3.5-6.1) 01/16/18 06:00 Hgb 12.5 g/dL (12.0-16.0) 01/16/18 06:00 Hct 37.5 % (36.0-48.0) 01/16/18 06:00 MCV 88.7 fl (80.0-105.0) 01/16/18 06:00 MCH 29.6 pg (25.0-35.0) 01/16/18 06:00 MCHC 33.3 g/dl (31.0-37.0) 01/16/18 06:00 RDW 14.1 % (11.5-14.5) 01/16/18 06:00 Plt Count 139 10^3/uL (120.0-450.0) 01/16/18 06:00 MPV 10.7 fl (7.0-11.0) 01/16/18 06:00 Gran % 92.6 % (50.0-68.0) H 01/14/18 12:56 Lymph % (Auto) 1.6 % (22.0-35.0) L 01/14/18 12:56 [place] % (Auto) 5.6 % (1.0-6.0) 01/14/18 12:56 Eos % (Auto) 0.2 % (1.5-5.0) L 01/14/18 12:56 Baso % (Auto) 0.0 % (0.0-3.0) 01/14/18 12:56 Gran # 4.10 (1.4-6.5) 01/14/18 12:56 Lymph # (Auto) 0.1 (1.2-3.4) L 01/14/18 12:56 [place] # (Auto) 0.3 (0.1-0.6) 01/14/18 12:56 Eos # (Auto) 0.0 (0.0-0.7) 01/14/18 12:56 Baso # (Auto) 0.00 K/mm3 (0.0-2.0) 01/14/18 12:56 Neutrophils % (Manual) 98 % (50.0-70.0) H 01/14/18 12:56 Lymphocytes % (Manual) 1 % (22.0-35.0) L 01/14/18 12:56 Monocytes % (Manual) 1 % (1.0-6.0) 01/14/18 12:56 Platelet Evaluation Normal (NORMAL) 01/14/18 12:56 PT 24.7 SECONDS (9.4-12.5) H 01/14/18 12:56 INR 2.13 (0.93-1.08) H 01/14/18 12:56 APTT 35.0 Seconds (25.1-36.5) 01/14/18 12:56 pO2 57 mm/Hg (30-55) H 01/14/18 12:56 VBG pH 7.45 (7.32-7.43) H 01/14/18 12:56 VBG pCO2 35.0 (40-60) L 01/14/18 12:56 VBG HCO3 24.3 mmol/l (21-28) 01/14/18 12:56 VBG Total CO2 25.4 mmol.L (22-28) 01/14/18 12:56 VBG O2 Sat (Calc) 93.7 % (40-65) H 01/14/18 12:56 VBG Base Excess 0.7 mmol/L (0.0-2.0) 01/14/18 12:56 VBG Potassium 5.3 mmol/L (3.6-5.2) H 01/14/18 12:56 Sodium 135.0 mmol/L (132-148) 01/14/18 12:56 Chloride 105.0 mmol/L (98-107) 01/14/18 12:56 Glucose 138 mg/dl (65-105) H 01/14/18 12:56 Lactate 1.3 mmol/L (0.7-2.1) 01/14/18 12:56 FiO2 21.0 % 01/14/18 12:56 Sodium 145 mmol/L (132-148) 01/16/18 06:00 Potassium 3.3 mmol/L (3.6-5.0) L 01/16/18 06:00 Chloride 109 mmol/L (98-107) H 01/16/18 06:00 Carbon Dioxide 26 mmol/L (21-33) 01/16/18 06:00 Anion Gap 13 (10-20) 01/16/18 06:00 BUN 11 mg/dL (7-21) 01/16/18 06:00 Creatinine 1.1 mg/dl (0.7-1.2) 01/16/18 06:00 Est GFR ( Amer) 58 01/16/18 06:00 Est GFR (Non-Af Amer) 48 01/16/18 06:00 Random Glucose 104 mg/dL (70-110) 01/16/18 06:00 Calcium 8.5 mg/dL (8.4-10.5) 01/16/18 06:00 Phosphorus 2.8 mg/dL (2.5-4.5) 01/16/18 06:00 Magnesium 1.7 mg/dL (1.7-2.2) 01/14/18 14:07 Total Bilirubin 0.8 mg/dL (0.2-1.3) 01/14/18 14:07 AST 25 U/L (14-36) 01/14/18 14:07 ALT 20 U/L (7-56) 01/14/18 14:07 Alkaline Phosphatase 81 U/L (38-126) 01/14/18 14:07 Lactate Dehydrogenase 394 U/L (333-699) 01/14/18 14:07 Total Creatine Kinase 37 U/L (35-230) 01/14/18 14:07 Troponin I < 0.01 ng/mL 01/14/18 14:07 Total Protein 6.5 g/dL (5.8-8.3) 01/14/18 14:07 Albumin 3.9 g/dL (3.0-4.8) 01/14/18 14:07 Globulin 2.7 gm/dL 01/14/18 14:07 Albumin/Globulin Ratio 1.4 (1.1-1.8) 01/14/18 14:07 Venous Blood Potassium 5.3 mmol/L (3.6-5.2) H 01/14/18 12:56 Urine Color Yellow (YELLOW) 01/14/18 14:07 Urine Appearance Turbid (CLEAR) 01/14/18 14:07 Urine pH 6.0 (4.7-8.0) 01/14/18 14:07 Ur Specific Hubbell 1.020 (1.005-1.035) 01/14/18 14:07 Urine Protein 30 mg/dL (<30 mg/dL) H 01/14/18 14:07 Urine Glucose (UA) Negative mg/dL (NEGATIVE) 01/14/18 14:07 Urine Ketones Negative mg/dL (NEGATIVE) 01/14/18 14:07 Urine Blood Large (NEGATIVE) H 01/14/18 14:07 Urine Nitrate Negative (NEGATIVE) 01/14/18 14:07 Urine Bilirubin Negative (NEGATIVE) 01/14/18 14:07 Urine Urobilinogen 0.2 E.U./dL (<1 E.U./dL) 01/14/18 14:07 Ur Leukocyte Esterase Small [place]/uL (NEGATIVE) H 01/14/18 14:07 Urine RBC 10 - 15 /hpf (0-2) 01/14/18 14:07 Urine WBC 5 - 10 /hpf (0-6) 01/14/18 14:07 Ur Epithelial Cells Many /hpf (0-5) 01/14/18 14:07 Urine Bacteria Few (NEG) 01/14/18 14:07 - Hospital Course Hospital Course: This is a 77yo female with past medical history of HTN, CAD, a.fib (on Eliquis) , GERD, UTI, AMS who is admitted for AMS and UTI. Symptoms have improved. Patient failed outpatient antibiotics. CT head was negative as well as CT A/P. Urine culture was negative due to previous use of antibiotics. She has been stable. We placed her on IV antibiotics and continued home medications. Patient will be d/c home with Augmentin 500/125 BID for 5 days which was sent to her pharmacy ([facility]). She will follow up with Dr. Edmonds and Dr. Salazar as outpatient. Patient's is at bedside. Both verbalized and agreed with discharge plan. - Date & Time of H&P Date of H&P: 01/15/18 Time of H&P: 10:54 Discharge Exam - Head Exam Head Exam: ATRAUMATIC, NORMAL INSPECTION, NORMOCEPHALIC - Eye Exam Eye Exam: Normal appearance, PERRL Pupil Exam: NORMAL ACCOMODATION - ENT Exam ENT Exam: Mucous Membranes Moist - Respiratory Exam Respiratory Exam: Clear to PA & Lateral, NORMAL BREATHING PATTERN, UNREMARKABLE. absent: Rhonchi, Wheezes - Cardiovascular Exam Cardiovascular Exam: Irregular Rhythm, +S1, +S2. absent: Gallop, Rubs, Systolic Murmur - GI/Abdominal Exam GI & Abdominal Exam: Normal Bowel Sounds, Soft, Unremarkable. absent: Rebound, Rigid, Tenderness - Extremities Exam Extremities exam: normal inspection - Neurological Exam Neurological exam: Alert, CN II-XII Intact - Skin Skin Exam: Dry, Warm Discharge Plan - Discharge Medications Prescriptions: Amoxicillin/Clavulanate [Augmentin 500 MG-125 MG] 1 tab PO BID #10 tab - Follow Up Plan Condition: FAIR Disposition: HOME/ ROUTINE Instructions: Urinary Tract Infection in Women (DC), Dysuria (GEN), Altered Mental Status (GEN) Additional Instructions: 1. Finish course of antibiotics 2. Follow up with Dr. Edmonds and Dr. Salazar as outpatient. Referrals: Nayan Edmonds MD [Primary Care Provider] - <Dominik Curtis S - Last Filed: 01/18/18 09:39> Provider - Provider Date of Admission: 01/15/18 15:13 Attending physician: Nayan Edmonds MD Primary care physician: Nayan Edmonds MD Hospital Course - Lab Results Lab Results: Most Recent Lab Values WBC 2.6 10^3/ul (4.5-11.0) L* D 01/16/18 06:00 RBC 4.23 10^6/uL (3.5-6.1) 01/16/18 06:00 Hgb 12.5 g/dL (12.0-16.0) 01/16/18 06:00 Hct 37.5 % (36.0-48.0) 01/16/18 06:00 MCV 88.7 fl (80.0-105.0) 01/16/18 06:00 MCH 29.6 pg (25.0-35.0) 01/16/18 06:00 MCHC 33.3 g/dl (31.0-37.0) 01/16/18 06:00 RDW 14.1 % (11.5-14.5) 01/16/18 06:00 Plt Count 139 10^3/uL (120.0-450.0) 01/16/18 06:00 MPV 10.7 fl (7.0-11.0) 01/16/18 06:00 Gran % 92.6 % (50.0-68.0) H 01/14/18 12:56 Lymph % (Auto) 1.6 % (22.0-35.0) L 01/14/18 12:56 [place] % (Auto) 5.6 % (1.0-6.0) 01/14/18 12:56 Eos % (Auto) 0.2 % (1.5-5.0) L 01/14/18 12:56 Baso % (Auto) 0.0 % (0.0-3.0) 01/14/18 12:56 Gran # 4.10 (1.4-6.5) 01/14/18 12:56 Lymph # (Auto) 0.1 (1.2-3.4) L 01/14/18 12:56 [place] # (Auto) 0.3 (0.1-0.6) 01/14/18 12:56 Eos # (Auto) 0.0 (0.0-0.7) 01/14/18 12:56 Baso # (Auto) 0.00 K/mm3 (0.0-2.0) 01/14/18 12:56 Neutrophils % (Manual) 98 % (50.0-70.0) H 01/14/18 12:56 Lymphocytes % (Manual) 1 % (22.0-35.0) L 01/14/18 12:56 Monocytes % (Manual) 1 % (1.0-6.0) 01/14/18 12:56 Platelet Evaluation Normal (NORMAL) 01/14/18 12:56 PT 24.7 SECONDS (9.4-12.5) H 01/14/18 12:56 INR 2.13 (0.93-1.08) H 01/14/18 12:56 APTT 35.0 Seconds (25.1-36.5) 01/14/18 12:56 pO2 57 mm/Hg (30-55) H 01/14/18 12:56 VBG pH 7.45 (7.32-7.43) H 01/14/18 12:56 VBG pCO2 35.0 (40-60) L 01/14/18 12:56 VBG HCO3 24.3 mmol/l (21-28) 01/14/18 12:56 VBG Total CO2 25.4 mmol.L (22-28) 01/14/18 12:56 VBG O2 Sat (Calc) 93.7 % (40-65) H 01/14/18 12:56 VBG Base Excess 0.7 mmol/L (0.0-2.0) 01/14/18 12:56 VBG Potassium 5.3 mmol/L (3.6-5.2) H 01/14/18 12:56 Sodium 135.0 mmol/L (132-148) 01/14/18 12:56 Chloride 105.0 mmol/L (98-107) 01/14/18 12:56 Glucose 138 mg/dl (65-105) H 01/14/18 12:56 Lactate 1.3 mmol/L (0.7-2.1) 01/14/18 12:56 FiO2 21.0 % 01/14/18 12:56 Sodium 145 mmol/L (132-148) 01/16/18 06:00 Potassium 3.3 mmol/L (3.6-5.0) L 01/16/18 06:00 Chloride 109 mmol/L (98-107) H 01/16/18 06:00 Carbon Dioxide 26 mmol/L (21-33) 01/16/18 06:00 Anion Gap 13 (10-20) 01/16/18 06:00 BUN 11 mg/dL (7-21) 01/16/18 06:00 Creatinine 1.1 mg/dl (0.7-1.2) 01/16/18 06:00 Est GFR ( Amer) 58 01/16/18 06:00 Est GFR (Non-Af Amer) 48 01/16/18 06:00 Random Glucose 104 mg/dL (70-110) 01/16/18 06:00 Calcium 8.5 mg/dL (8.4-10.5) 01/16/18 06:00 Phosphorus 2.8 mg/dL (2.5-4.5) 01/16/18 06:00 Magnesium 1.7 mg/dL (1.7-2.2) 01/14/18 14:07 Total Bilirubin 0.8 mg/dL (0.2-1.3) 01/14/18 14:07 AST 25 U/L (14-36) 01/14/18 14:07 ALT 20 U/L (7-56) 01/14/18 14:07 Alkaline Phosphatase 81 U/L (38-126) 01/14/18 14:07 Lactate Dehydrogenase 394 U/L (333-699) 01/14/18 14:07 Total Creatine Kinase 37 U/L (35-230) 01/14/18 14:07 Troponin I < 0.01 ng/mL 01/14/18 14:07 Total Protein 6.5 g/dL (5.8-8.3) 01/14/18 14:07 Albumin 3.9 g/dL (3.0-4.8) 01/14/18 14:07 Globulin 2.7 gm/dL 01/14/18 14:07 Albumin/Globulin Ratio 1.4 (1.1-1.8) 01/14/18 14:07 Venous Blood Potassium 5.3 mmol/L (3.6-5.2) H 01/14/18 12:56 Urine Color Yellow (YELLOW) 01/14/18 14:07 Urine Appearance Turbid (CLEAR) 01/14/18 14:07 Urine pH 6.0 (4.7-8.0) 01/14/18 14:07 Ur Specific [place] 1.020 (1.005-1.035) 01/14/18 14:07 Urine Protein 30 mg/dL (<30 mg/dL) H 01/14/18 14:07 Urine Glucose (UA) Negative mg/dL (NEGATIVE) 01/14/18 14:07 Urine Ketones Negative mg/dL (NEGATIVE) 01/14/18 14:07 Urine Blood Large (NEGATIVE) H 01/14/18 14:07 Urine Nitrate Negative (NEGATIVE) 01/14/18 14:07 Urine Bilirubin Negative (NEGATIVE) 01/14/18 14:07 Urine Urobilinogen 0.2 E.U./dL (<1 E.U./dL) 01/14/18 14:07 Ur Leukocyte Esterase Small [place]/uL (NEGATIVE) H 01/14/18 14:07 Urine RBC 10 - 15 /hpf (0-2) 01/14/18 14:07 Urine WBC 5 - 10 /hpf (0-6) 01/14/18 14:07 Ur Epithelial Cells Many /hpf (0-5) 01/14/18 14:07 Urine Bacteria Few (NEG) 01/14/18 14:07 - Hospital Course Hospital Course: Pt seen and examined on 01-16-18 and this is a late entry. I have reviewed the note of the medical records supervisor and agree with it. I have discussed the assessment and plan with the resident. I have reviewed the patient's labs and medications.Pt was on Abx for UTI. UCx neg but pt was on outpt Abx. Will D/C home. No symptoms.
== END 2018-01-16 10:29 | disposition home or self-care (01) | DRG 690 ==
LOC: ED 12:20 → ERH 15:58 → 3RNO 18:28 → OBSVTOIN 01-15 15:13
PROVIDERS: ADMIT Internal Medicine; ATTEND Internal Medicine
DX: N39.0 Urinary tract infection, site not specified (principal); K21.9 Gastro-esophageal reflux disease without esophagitis; I48.91 Unspecified atrial fibrillation; I25.10 Atherosclerotic heart disease of native coronary artery without angina pectoris; I10 Essential (primary) hypertension; E78.00 Pure hypercholesterolemia, unspecified; E83.39 Other disorders of phosphorus metabolism; Z79.01 Long term (current) use of anticoagulants; Z86.010 Personal history of colon polyps; Z95.1 Presence of aortocoronary bypass graft; Z87.891 Personal history of nicotine dependence